=== PATIENT | female | born 1990 | race Asian ===

== ENCOUNTER → 2017-05-04 16:47 | Outpatient (CLI) | payer OTHER, SELFPAY ==
[2017-01-05 12:50] VITALS: BP 114/63
[2017-05-03 10:24] VITALS: BP 110/66; BMI 30.7
== END ==
PROVIDERS: Family Provider Family Medicine; PCP Family Medicine; Visit Provider Physician Assistant
DX: J02.9 Acute pharyngitis, unspecified (principal)
CPT/HCPCS: 87081

== ENCOUNTER → 2017-07-09 17:28 | Outpatient (CLI) | payer OTHER, SELFPAY | PROVIDERS: Family Provider Family Medicine; PCP Family Medicine; Visit Provider Physician Assistant Surgical | DX: J02.9 Acute pharyngitis, unspecified (principal) | CPT/HCPCS: 87081 ==

== ENCOUNTER → 2020-07-27 15:19 | Outpatient (CLI) | payer OTHER, SELFPAY ==
[2020-07-21 08:36] VITALS: BMI 34.9
--- NOTE | 2020-07-27 15:28 | MRI_ITS ---
STUDY: MRI RIGHT KNEE REASON FOR EXAM: Female, 30 years old. Injury, pain, stiffness. Patient reports posterior tightness. TECHNIQUE: Standardized fat and water weighted pulse sequences were obtained in all 3 orthogonal planes. COMPARISON: X-ray 07/21/2020. FINDINGS: Normal medial meniscus. Normal hyaline cartilage of the medial femorotibial compartment. Normal medial collateral ligamentous complex (MCL). Normal distal semimembranosus, gracilis and semitendinosus tendons. Normal lateral meniscus. Normal hyaline cartilage of the lateral femorotibial compartment. Normal proximal tibiofibular articulation. Normal lateral collateral (fibular) ligament. Normal popliteus tendon. Normal biceps femoris tendon. Partial tear of the anterior cruciate ligament (ACL). Normal posterior cruciate ligament (PCL). Normal congruent patellofemoral articulation. Normal hyaline cartilage of the patellofemoral compartment. Normal medial and lateral patellar retinaculum. Normal quadriceps tendon. Normal patellar tendon. Bone contusions in the posterolateral and posteromedial tibial plateaus. Small bone contusion in the medial femoral condyle. Moderate joint effusion. The soft tissues are unremarkable. MRI/Lower Ext Joint Only (Routine) IMPRESSION: 1. Partial ACL tear. 2. Bone contusions. 3. Joint effusion. Electronically Signed: Yumiko Finnegan MD at 19:43 EDT Tel , Service support ,
== END ==
PROVIDERS: PCP Nurse Practitioner Family; Referring Provider Orthopaedic Surgery; Visit Provider Orthopaedic Surgery
DX: S83.511A Sprain of anterior cruciate ligament of right knee, initial encounter (principal); S80.01XA Contusion of right knee, initial encounter; X58.XXXA Exposure to other specified factors, initial encounter; M25.361 Other instability, right knee
CPT/HCPCS: 73721

== ENCOUNTER 2020-09-01 17:30 | Outpatient (RCR) | payer OTHER, SELFPAY ==
[2020-07-28 09:37] VITALS: BMI 34.9
--- NOTE | 2020-08-06 12:52 | HP.PTEVAL_ITS ---
Patient's Visit Information USHA COX is a 30 year old F referred to Physical Therapy by Dr. Rogelio Farfan DO with a diagnosis of R partial ACL tear, bone contusion. Date of Evaluation: 08/05/20 Physical Therapist: Cecil Cohen DPT - Visit Plan Frequency: 1-2x /Week Duration: 4-6 Months Plan: Start with restoring ROM both flexion and extension of her R knee. Add in gait progression. Progress quad, HS, glute strengthening. - Subjective Pt. is here today for her initial evaluation with diagnosis of R partial ACL tear with a bone contusion. Pt. reports ~3 weeks ago she was walking her dog and fall, with subsequent rolling down a hill. She had an MRI showing the above injury. She was instructed how a partial ACL tear can heal and how exercise and PT can be helpful. Pt. has not done much exercise since her injury. She has been icing without issues. Pt. is back at work. She works at [employer] in [employer]. She is on her feet most of the day. She is having trouble with walking. She reports having to walk on her toe on the R leg as she can not fully straighten our her leg. No N/T, no radicular symptoms noted. Pt. reports pain at anterior inferior patella region and occasional posterior popliteal pain. Pt. is hopeful to get back to all walking and recreational activities without limitations. - Pain R knee Pain Intensity (Out of 10): 2 Pain Intensity Range: 0, 7 - Objective POSTURE: Pt. has increased L wt. shift. Pt. lacks R TKE. Tends to stand on R toe with increased ankle PF. PALPATION: Pt. has tenderness at medial joint line, patellar tendon, and medial aspect of her popliteal fossa. NEURO: Pt. has normal sensation of BLEs. Pt. has 2+ patellar and achilles DTR bilaterally. ROM: L knee 0-0-134deg. R knee 0-11-109deg. Tight HS and quad on R side. MMT: LLE: ankle and knee 5/5 throughout; hip- flexion 4+/5, and 4+/5, ext 4+/5. RLE: ankle 5/5 throughout; knee: ext 3/5 (SLR with quad lag), knee flexion 4/5; hip- flexion 3/5, abd 4/5, ext 4/5. Lower abdominals fair-. GAIT: pt. ambulates without AD, but lack TKE of R knee during stance phase and lacks knee flexion during swing phase of gait. Pt. reports increased pain during stance phase. She was able to improved her pattern with VCing, but not normalized. - Goals Goal 1:: LTG: Pt. to be I with HEP Goal Time Frame: 2-4 Weeks Goal 2:: STG: Pt. to have full knee ext of R knee Goal Time Frame: 2 Weeks Goal 3:: STG: Pt. to have increased knee flexion to at least 125 deg without increase in symptoms. Goal Time Frame: 2 Weeks Goal 4:: LTG: Pt. to have increased RLE strength to 4+/5 throughout. Goal Time Frame: 2-4 Weeks Goal 5:: STG: Pt. to ambulate with normal gait pattern without increase in symptoms. Goal Time Frame: 2-4 Weeks Goal 6:: LTG: Pt. to negotiate steps with reciprocal pattern with use of 1 HR without increase in symptoms. Goal Time Frame: 4-6 Weeks - Rehabilitation Potential Physical Therapy Diagnosis: Pt. has signs and symptoms consistent with partial R ACL tear with tibial bone contusion. Pt. has marked hypo mobility throughout her R knee along with decreased RLE muscle strength and difficulty with walking. Pt. would benefit from PT to work on the above limitations progressing back to all functional and recreational activities without limitations. Rehabilitation Potential: Excellent - Anticipated Interventions Patient/Client Instruction: Educate patient on: Condition, Plan of Care, Risk Factors, Benefits of Fitness Program For the Purpose of:: To facilitate caregiver knowledge, To improve self management, To prevent re-injury, To improve ability to perform tasks related to life management Therapeutic Exercise to Include: Strength training, Power training, Endurance training, Balance training, Coordination, Body mechanics, Gait and locomotor training, Passive ROM, Active ROM, Dynamic Lumbar Stabilization For the Purpose of:: To decrease pain, To increase ROM, To improve nutrient delivery to tissue, To increase oxygenation perfusion, To improve muscle performance and motor function, To improve ability to perform ADL's, To increase tolerance to activity/condition/position, To improve gait and locomotor functions, To improve health of tissue, To decrease soft tissue restriction, To increase flexibility/ROM Manual Therapy Techniques to Include: Mobilization, Passive ROM, Soft tissue mobilization For the Purpose of:: To decrease pain, To decrease swelling/inflammation, To increase ROM Other electric stimulation: Yes - NMES with muscle activation Cryotherapy (ice pack, ice massage): Yes Vasopneumatic device: Yes For the Purpose of:: To decrease pain, To decrease swelling/inflammation, To increase ROM, To improve nutrient delivery to tissue Thank you for the opportunity to evaluate your patient. For Medicare and Medicare HMO plans, please review the plan of care and approve it. It will need to be FAXED BACK to us at [phone] for Medicare purposes. For Medicare only, by signing this I certify the plan of care. Please let me know if there are questions or concerns regarding this plan of care. Physician Signatu re: Date:
--- NOTE | 2020-09-02 12:40 | HP.PTREVAL_ITS ---
Dr. Rogelio Farfan, DO, It has been my pleasure to treat USHA CASTILLOORROW over the last 5 visits for R partial ACL tear, bone contusion. Please see the progress note below for an update on the physical therapy plan of care! Subjective: The pt. states that she does not have pain, but feels stiff. She believes that it is from sitting at work all day and not getting up and moving. The pt. reports that she sees Dr. Frafan on September 22 and would like to continue therapy until then. Objective/Function: Knee flexion 121deg, knee extension -4deg from full knee extension (0deg). The pt. did well with therapy today. Her knee ROM has improved since the first visit and is not painful. She has been progressing her strength, but still exhibits quadriceps lag when performing a straight leg raise. The pt. will not be at therapy next week, but plans on coming back the week before she visits her doctor and then will decide if she needs more PT. Plan Plan: Start with restoring ROM both flexion and extension of her R knee. Add in gait progression. Progress quad, HS, glute strengthening. Goals Goal 1:: LTG: Pt. to be I with HEP Goal Time Frame: 2-4 Weeks Goal 2:: STG: Pt. to have full knee ext of R knee Goal Time Frame: 2 Weeks Goal 3:: STG: Pt. to have increased knee flexion to at least 125 deg without increase in symptoms. Goal Time Frame: 2 Weeks Goal 4:: LTG: Pt. to have increased RLE strength to 4+/5 throughout. Goal Time Frame: 2-4 Weeks Goal 5:: STG: Pt. to ambulate with normal gait pattern without increase in symptoms. Goal Time Frame: 2-4 Weeks Goal 6:: LTG: Pt. to negotiate steps with reciprocal pattern with use of 1 HR without increase in symptoms. Goal Time Frame: 4-6 Weeks Anticipated Interventions Patient/Client Instruction: Educate patient on: Condition, Plan of Care, Risk Factors, Benefits of Fitness Program For the Purpose of:: To facilitate caregiver knowledge, To improve self managem ent, To prevent re-injury, To improve ability to perform tasks related to life management Therapeutic Exercise to Include: Strength training, Power training, Endurance training, Balance training, Coordination, Body mechanics, Gait and locomotor training, Passive ROM, Active ROM, Dynamic Lumbar Stabilization For the Purpose of:: To decrease pain, To increase ROM, To improve nutrient delivery to tissue, To increase oxygenation perfusion, To improve muscle performance and motor function, To improve ability to perform ADL's, To increase tolerance to activity/condition/position, To improve gait and locomotor functions, To improve health of tissue, To decrease soft tissue restriction, To increase flexibility/ROM Manual Therapy Techniques to Include: Mobilization, Passive ROM, Soft tissue mobilization For the Purpose of:: To decrease pain, To decrease swelling/inflammation, To increase ROM Other electric stimulation: Yes - NMES with muscle activation Cryotherapy (ice pack, ice massage): Yes Vasopneumatic device: Yes For the Purpose of:: To decrease pain, To decrease swelling/inflammation, To increase ROM, To improve nutrient delivery to tissue Please do not hesitate to contact me at [phone] by phone or if you have questions or concerns regarding this new plan of care! Sincerely, Cecil Cohen DPT
--- NOTE | 2021-02-23 10:56 | HP.PT.NRP ---
USHA COX was seen in my office for initial evaluation on 08/05/20. The following Plan of Care was established for this patient: Initial Frequency: 1-2x /Week Initial Duration: 4-6 Months Patient/Client Instruction: Educate patient on: Condition, Plan of Care, Risk Factors, Benefits of Fitness Program For the Purpose of:: To facilitate caregiver knowledge, To improve self management, To prevent re-injury, To improve ability to perform tasks related to life management Therapeutic Exercise to Include: Strength training, Power training, Endurance training, Balance training, Coordination, Body mechanics, Gait and locomotor training, Passive ROM, Active ROM, Dynamic Lumbar Stabilization For the Purpose of:: To decrease pain, To increase ROM, To improve nutrient delivery to tissue, To increase oxygenation perfusion, To improve muscle performance and motor function, To improve ability to perform ADL's, To increase tolerance to activity/condition/position, To improve gait and locomotor functions, To improve health of tissue, To decrease soft tissue restriction, To increase flexibility/ROM Manual Therapy Techniques to Include: Mobilization, Passive ROM, Soft tissue mobilization For the Purpose of:: To decrease pain, To decrease swelling/inflammation, To increase ROM Other electric stimulation: Yes - NMES with muscle activation Cryotherapy (ice pack, ice massage): Yes Vasopneumatic device: Yes For the Purpose of:: To decrease pain, To decrease swelling/inflammation, To increase ROM, To improve nutrient delivery to tissue This patient was last seen in our office 09/01/20. Pertinent comments regarding their Physical therapy will appear below: Pt. was seen in PT for a partial ACL tear. At her last visit she reports doing much better. Pt. was 70% better overall. Pt. was to complete her exercises on her own and follow up with PT if needed. Pt. has not been seen in several months and will be DC from PT at this point in time. At this point I will be discontinuing this patient from physical therapy. I would be happy to see this patient again in the future if found appropriate by the physician. Thank you! Cecil Cohen, DPT Balance/Gait/Functional tests - Balance/Special Test Scores Lower Extremity Functional Score: 33
== END 2020-09-01 19:00 | disposition home or self-care (01) ==
LOC: PT 17:30
PROVIDERS: PCP Nurse Practitioner Family; Referring Provider Orthopaedic Surgery; Visit Provider Orthopaedic Surgery
DX: S83.519D Sprain of anterior cruciate ligament of unspecified knee, subsequent encounter (principal); S80.10XD Contusion of unspecified lower leg, subsequent encounter; X58.XXXD Exposure to other specified factors, subsequent encounter
CPT/HCPCS: 97014; 97110; 97161; G0283